=== PATIENT | male | born 1980 | race Caucasian/White ===

== ENCOUNTER 2022-08-25 22:47 | Emergency (ER) | payer OTHER, SELFPAY ==
[2022-08-25 22:57] VITALS: BP 126/79; PULSE 78; RESP 18; TEMP 37; O2SAT 97; BMI 29.5
--- NOTE | 2022-08-25 23:44 | W.ED.CHESTPA ---
Documented by User: ALFREDO Hollis 08/26/22 00:26 HPI - Chest Pain General: Chief Complaint: Chest Pain Stated Complaint: cp Time Seen by Provider: 08/25/22 23:44 History of Present Illness: 42-year-old male patient comes in today for complaints of some epigastric to chest discomfort. Patient reports a similar episode in 2017 when he was taking some antibiotics. Patient was started on antibiotics on Saturday and a steroid for sinus infection. Patient was concerned and wanted to be evaluated due to it being in his chest and concerns for coronary disease. Patient has no family history of coronary artery disease. Patient denies smoking, drinking alcohol, or using illicit substances. Patient appears well. Patient appears in no pain. Patient reports that his discomfort started about 9:00 about 1 hour after taking his Augmentin and steroid, and has resolved since being in the ER. Review of Systems General: Reports: 10 or more systems reviewed and unremarkable except in HPI and below Card: Reports: chest pain Physical Exam Const: COMMON NORMALS: alert HENMT: COMMON NORMALS: normocephalic HEAD & SCALP: normocephalic Neck/C-Spine: COMMON NORMALS: full ROM Resp: COMMON NORMALS: normal respiratory effort and clear to auscultation bilaterally AUSCULTATION: clear to auscultation bilaterally Cardio: COMMON NORMALS: regular rate, regular rhythm, S1 normal heart sound present, S2 normal heart sound present and No murmurs present (Cardio) RATE: regular rate RHYTHM: regular rhythm HEART SOUNDS: S1 normal heart sound present and S2 normal heart sound present Extremity: COMMON NORMALS: no pedal edema Neuro: SENSORIUM/ORIENTATION: Yes alert Skin: COMMON NORMALS: turgor normal GENERAL SKIN EXAM: turgor normal Course Vital Signs: Vital signs: Vital Signs Temperature 98.6 F 08/25/22 22:57 Pulse Rate 78 08/25/22 22:57 Respiratory Rate 18 08/25/22 22:57 Blood Pressure 126/79 08/25/22 22:57 Pulse Oximetry 97 08/25/22 22:57 Oxygen Delivery Me thod 08/25/22 22:57 [facility] - Chest Pain Medical Decision Making 42-year-old male patient comes in today for complaints of chest pain. Patient was concerned due to being chest pain but felt that it might be more due to his use of antibiotic and steroid that he had started on Saturday for sinus infection. On exam abdomen was soft with no tenderness. Lungs were clear to auscultation. Vital signs were normal. EKG was normal sinus rhythm. Differential diagnosis includes but not limited to GERD, adverse drug effect, ACS. No signs of ACS was noted. Patient is very low risk for coronary artery disease. EKG showed a sinus rhythm with no signs of STEMI or other abnormalities. We started patient on some pantoprazole 40 mg x 1. Patient was recommended to use it for the next 2 weeks due to reflux secondary to antibiotic and steroid. Discharge Plan Discharge Patient Disposition: Home Clinical Impression: Chest pain due to GERD Adverse drug effect Qualifiers: Encounter type: initial encounter Qualified Code(s): T50.905A - Adverse effect of unspecified drugs, medicaments and biological substances, initial encounter Condition: Stable Prescriptions: New pantoprazole 40 mg tablet,delayed release (DR/EC) 40 mg PO 1XD 14 Days Qty: 14 0RF Discharge Orders: Discharge ED (Routine); Ordered 08/25/22 Ordered By: Jovani Ochoa Discharge Diet: Usual diet Discharge Activity: Increase activity as tolerated Patient Instructions: Chest Pain (ED) Activity Restrictions/Additional Instructions: Most likely your symptoms are secondary to your use of Augmentin and methylprednisolone. Both of these medications can irritate your stomach and cause increased reflux. Try to take the medication earlier in the day as it may not cause as much discomfort. Take the medicine with food on your stomach. Use pantoprazole or [id number] Prilosec 1 capsule daily for the next 2 weeks which should help with the reflux. Return to the ER for worsening symptoms such as severe crushing chest pain, pressure like an elephant sitting on your chest, increased shortness of breath, or fever greater than 100.4. Coding Level of Care Code ED Client Resource Specialist for Chg Fwd Exam Detailed Documented by User: Derick Jones DO 08/26/22 17:02 HPI - Chest Pain General: Chief Complaint: Chest Pain Stated Complaint: cp Time Seen by Provider: 08/25/22 23:44 Course Vital Signs: Vital signs: Vital Signs Temperature 98.6 F 08/25/22 22:57 Pulse Rate 78 08/25/22 22:57 Respiratory Rate 18 08/25/22 22:57 Blood Pressure 126/79 08/25/22 22:57 Pulse Oximetry 97 08/25/22 22:57 Oxygen Delivery Me thod 08/25/22 22:57 MDM - Chest Pain Medical Decision Making 42-year-old male patient comes in today for complaints of chest pain. Patient was concerned due to being chest pain but felt that it might be more due to his use of antibiotic and steroid that he had started on Saturday for sinus infection. On exam abdomen was soft with no tenderness. Lungs were clear to auscultation. Vital signs were normal. EKG was normal sinus rhythm. Differential diagnosis includes but not limited to GERD, adverse drug effect, ACS. No signs of ACS was noted. Patient is very low risk for coronary artery disease. EKG showed a sinus rhythm with no signs of STEMI or other abnormalities. We started patient on some pantoprazole 40 mg x 1. Patient was recommended to use it for the next 2 weeks due to reflux secondary to antibiotic and steroid. This patient was originally seen by ALFREDO Watters. I agree with his history, evaluation, and treatment. Discharge Plan Discharge Patient Disposition: Home Clinical Impression: Chest pain due to GERD Adverse drug effect Qualifiers: Encounter type: initial encounter Qualified Code(s): T50.905A - Adverse effect of unspecified drugs, medicaments and biological substances, initial encounter Condition: Stable Prescriptions: New pantoprazole 40 mg tablet,delayed release (DR/EC) 40 mg PO 1XD 14 Days Qty: 14 0RF Discharge Orders: Discharge ED (Routine); Ordered 08/25/22 Ordered By: Jovani Ochoa Discharge Diet: Usual diet Discharge Activity: Increase activity as tolerated Patient Instructions: Chest Pain (ED) Activity Restrictions/Additional Instructions: Most likely your symptoms are secondary to your use of Augmentin and methylprednisolone. Both of these medications can irritate your stomach and cause increased reflux. Try to take the medication earlier in the day as it may not cause as much discomfort. Take the medicine with food on your stomach. Use pantoprazole or [id number] Prilosec 1 capsule daily for the next 2 weeks which should help with the reflux. Return to the ER for worsening symptoms such as severe crushing chest pain, pressure like an elephant sitting on your chest, increased shortness of breath, or fever greater than 100.4. Coding Level of Care Code ED Client Resource Specialist for Marlee Fwd Exam Detailed
[2022-08-26] MEDS: pantoprazole DR 40 mg Tablet PO (00:03)
== END 2022-08-26 00:12 | disposition home or self-care (01) ==
PROVIDERS: Emergency Provider Nurse Practitioner Family
DX: R07.9 Chest pain, unspecified (principal); T50.905A Adverse effect of unspecified drugs, medicaments and biological substances, initial encounter; K21.9 Gastro-esophageal reflux disease without esophagitis
CPT/HCPCS: 99283